=== PATIENT | male | born 1945 | race Caucasian/White ===

== ENCOUNTER 2017-03-10 13:45 | Inpatient (IN) | payer MEDICARE ==
[~2017-03-10] VITALS: Ht 170.2 cm; Wt 60.3 kg
--- NOTE | ~2017-03-10 | CR145 ---
[facility] Service of [facility] RADIOLOGY TEXT RESULTS PATIENT: BOUCHRA IVORY LOCATION: [place] [address] : [birth year] UNIT #: [id number] AGE: [address]: CHARLENE BRADY V SEX: M ORDER DR: [id number] [facility] [address] [facility]. [place], [place] [address] [id number] I MR#: [id number] Acc #: [id number] NAME: BOUCHRA IVORY : 1945 SEX: M STUDY DATE/TIME: 03/11/2017 20:48 UNIT: [facility] ROOM: [facility] STUDY DESCRIPTION: CR Hip 1 View Rt Attending Physician: Charlene Brady M.D. Ordering Physician: Jairo Ferro M.D. MEDICAL IMAGING REPORT This report is preliminary unless electronic signature is present EXAM Right hip one-view HISTORY Postop right hip surgery today. Hip fracture yesterday. FINDINGS Single view of the right hip demonstrates right hip arthroplasty in satisfactory position. No fracture. Small amount of postoperative soft tissue gas about the hip. IMPRESSION Satisfactory postoperative appearance of right hip arthroplasty. Dictated by... Thad Howe M.D. THIS IS AN ELECTRONICALLY VERIFIED REPORT Thad Howe M.D. at 03/12/2017 11:45 PM Nery TD: 03/12/2017 08:43 JOB #: [id number] MEDICAL IMAGING REPORT Page 1 of 1 COPY
--- NOTE | ~2017-03-10 | EKG ---
PATIENT: BOUCHRA IVORY UNIT #: [id number] Ventricular Rate: 82 BPM Atrial Rate: 82 BPM P-R Interval: 120 ms QRS Duration: 86 ms Q-T Interval: 374 ms QTC Calculation(Bezet): 436 ms P [place]: 72 degrees Calculated R [place]: 10 degrees Calculated T [place]: 25 degrees Diagnosis Line: Normal sinus rhythm Diagnosis Line: Cannot rule out Inferior infarct , age Diagnosis Line: undetermined Diagnosis Line: Borderline ECG Diagnosis Line: No previous ECGs available Diagnosis Line: Confirmed by IRENE WILKINSON MD ([id number]) on 03/11/2017 Diagnosis Line: 6:29:05 PM INTERPRETING MD: JAJA THORNE
--- NOTE | ~2017-03-10 | HP ---
Unit #: [id number] #: [id number] Patient: BOUCHRA IVORY [id number] [address] [address] [id number] E MR#: [id number] NAME: BOUCHRA IVORY. ROOM: Age: 71 Sex: M Admission Date: 03/10/2017 : 1945 Attending Physician: Gideon Cortes M.D. HISTORY AND PHYSICAL CHIEF COMPLAINT Right-sided pain from fall last night. HISTORY OF PRESENT ILLNESS The patient is a 71-year-old male with a history of hyperlipidemia and TIA brought to the emergency room status post fall. The patient was changing a bulb at the middle of the bed yesterday around 3 p.m. The patient fell backwards and hit the ground. The patient was complaining of pain on the right side of the body including the hip. The patient denies any loss of consciousness. The patient denies any nausea, vomiting, diaphoresis, chest pain, or headache. The patient refused to come to the hospital yesterday and presented today with worsening hip pain. The patient had a hip x-ray that showed a subcapital fracture of the femoral neck and is being admitted for the above reasons. He denies any fevers or chills. PAST MEDICAL HISTORY 1. Hyperlipidemia. 2. Transient ischemic attack. 3. Psychiatric history of unknown diagnosis. PAST SURGICAL HISTORY None. HOME MEDICATIONS 1. Donepezil. 2. Zoloft. 3. Lipitor. 4. Provera. 5. Flomax. 6. Low-dose aspirin. 7. Multivitamins. SOCIAL HISTORY Patient has smoked two packs per day in the past and stopped 16 years ago. No history of alcohol or any illicit drug abuse. FAMILY HISTORY Reviewed and none. REVIEW OF SYSTEMS Positive for fall, positive for hip pain. Denies any chest pain, denies any nausea or vomiting, and denies any shortness of breath. All other systems have been reviewed and are none except as mentioned above. Unit #: [id number] #: [id number] Patient: BOUCHRA IVORY PHYSICAL EXAMINATION GENERAL: Patient is lying in bed not in acute distress. VITAL SIGNS: Temperature 98, pulse 96, respiratory rate 18, blood pressure 135/84, and saturating 97% on room air. HEENT: Head atraumatic, normocephalic. Pupils equal, round, and reactive to light and accommodation. Extraocular movements are intact. NECK: Supple. LUNGS: Decreased air entry. HEART: Regular rate and rhythm. ABDOMEN: Soft. Positive bowel sounds. EXTREMITIES: Patient is having in the right hip status post subcapital femoral neck fracture. NEUROLOGIC: Alert, awake, and oriented. DIAGNOSTIC STUDIES LABORATORY: WBC 8, hemoglobin 12.9, hematocrit 38.2, and platelets 102,000. Sodium 141, potassium 4.2, chloride 107, bicarb 26, glucose 104, BUN 18, creatinine 0.8, calcium 8.8, AST 32, ALT 27, alkaline phosphatase 71, and albumin is 4. INR is 1.1. ASSESSMENT 1. Status post fall. 2. Right hip subcapital femoral neck fracture. PLAN Admit the patient to inpatient to a med/surg floor. Patient will have an Orthopedics evaluation for open reduction and internal fixation. Check urinalysis and EKG for preop clearance. Repeat the CBC and BMP in the morning, and further recommendations will follow as more lab results are available. Dictated by Elli Gardner TD: 03/10/2017 20:45 JOB #: [id number] HISTORY AND PHYSICAL Page 1 of 1 X CHARMAINE BARRERA MD X HISTORY AND PHYSICAL
--- NOTE | ~2017-03-10 | CR151 ---
[facility] A Service of [facility] & [facility] RADIOLOGY TEXT RESULTS PATIENT: BOUCHRA IVORY LOCATION: [facility] 469-01 : [birth year] UNIT #: [id number] AGE: [address]: RENZO BRADYJ V SEX: M ORDER DR: [id number] [facility] [address] [facility]. [place], [place] [address] [id number] I MR#: [id number] Acc #: [id number] NAME: BOUCHRA IVORY. : 1945 SEX: M STUDY DATE/TIME: 03/10/2017 14:44 UNIT: [facility] ROOM: Replaced by [facility] STUDY DESCRIPTION: CR Hip Min 2 Views Rt Attending Physician: Faraz Lyles M.D. Ordering Physician: Gideon Cortes M.D. MEDICAL IMAGING REPORT This report is preliminary unless electronic signature is present EXAM right hip 2 views HISTORY Right hip pain after fall yesterday. FINDINGS Two views of the right hip demonstrate transverse subcapital fracture right femoral neck with slight fracture impaction. Approximately 10 degrees anterior angulation of the fracture apex. No dislocation. No joint space narrowing. Dictated by... Thad Howe M.D. THIS IS AN ELECTRONICALLY VERIFIED REPORT Thad Howe M.D. at 03/11/2017 11:15 PM DFGala/naheed TD: 03/11/2017 07:04 JOB #: [id number] MEDICAL IMAGING REPORT Page 1 of 1 COPY
--- NOTE | ~2017-03-10 | OR ---
Unit #: [id number] #: [id number] Patient: BOUCHRA IVORY [id number] [address] [place], [place] [address] [id number] I MR#: [id number] NAME: BOUCHRA IVORY. ROOM: 456 Date of Procedure: 03/11/2017 Admission Date: 03/10/2017 Surgeon: Jairo Ferro M.D. : 1945 Attending Physician: [place] M.D. OPERATIVE REPORT PREOPERATIVE DIAGNOSIS Displaced left femoral neck fracture. POSTOPERATIVE DIAGNOSIS Displaced left femoral neck fracture. PROCEDURE PERFORMED Cemented bipolar prosthesis. ASSISTANTS Jackie Lucio and Lloyd Sanz. ANESTHESIA General. ESTIMATED BLOOD LOSS About 200 to 300 mL. INDICATIONS FOR PROCEDURE This is a 71-year-old gentleman with a left femoral neck fracture. He is brought to the operating room for surgical repair. DESCRIPTION OF PROCEDURE He was given appropriate IV antibiotics, brought back to the operating room, given a general anesthetic, placed in the decubitus position with the left side up. Left hip was prepped and draped in a sterile fashion. Modified Aufranc incision was mapped out and made. The subcutaneous dissected away and the fascia split longitudinally. Short external rotators were taken down. A posterior approach was carried out to the hip. The hip capsule was T'd open. The leg was internally rotated. The neck fracture came into view. The neck was cut at the appropriate level. The small neck fragment removed. We then removed the head from the acetabulum and measured this and it was found to be a 52 mm size, so a 52 mm trial bipolar was placed and the acetabulum fit appropriately. We then prepared the femur. Starter reamer passed down. Lateralizing reamer used and then the broaches used for the [place] cemented stem up to a size 5. Once this was in place and found to be the appropriate size, the canal was brushed, plugged, irrigated, and dried. Two packages of cement were mixed and the stem was cemented into 20 degrees of anteversion. When the cement was hardened, we checked leg length and found that the +5 head gave us the appropriate stability. So the +5, 28 head was opened and applied to the inside of the 52 mm bipolar. This construct was then applied to the Unit #: [id number] #: [id number] Patient: BOUCHRA IVORY trunnion bearing and impacted. The hip was reduced. It was stable in all directions. Leg lengths were appropriate. The wound was then had the ropivacaine mixture injected, was irrigated with Betadine and bacitracin and then closed. The capsule was repaired with 0 Vicryl, the fascia with a running #1 Stratafix suture. The subcutaneous was closed with 0 and 2-0 Vicryl and dianelys in the skin. behavioral assistant, Jackie Lucio, was present throughout the entire case. Dictated by... Elli Morales/jb TD: 03/14/2017 14:48 JOB #: [id number] OPERATIVE REPORT Page 1 of 1 X Jairo Ferro MD X PROCEDURE OPERATIVE NOTE
--- NOTE | ~2017-03-10 | CT71 ---
[facility] A Service [facility] RADIOLOGY TEXT RESULTS PATIENT: BOUCHRA IVORY LOCATION: [facility] 457 : [birth year] UNIT #: [id number] AGE: [address]: CHARLENE BRADY V SEX: M ORDER DR: [id number] [place] [address] [facility]. [place], [place] [address] [id number] I MR#: [id number] Acc #: [id number] NAME: BOUCHRA IVORY. : 1945 SEX: M STUDY DATE/TIME: 03/10/2017 16:01 UNIT: [facility] ROOM: [facility] STUDY DESCRIPTION: CT Head Wo Contrast Attending Physician: Faraz Lyles M.D. Ordering Physician: Gideon Cortes M.D. MEDICAL IMAGING REPORT This report is preliminary unless electronic signature is present EXAM CT head INDICATIONS Right-sided headache status post fall. Head hit a dresser. TECHNIQUE CT head without contrast. The CT exam was performed with one or more of the following radiation dose reduction techniques: automatic exposure control, adjustment of mA and/or kV according to patient size, and iterative reconstruction. COMPARISON CT head 12/25/2011. FINDINGS There is no acute intracranial hemorrhage, mass lesion, or acute infarct. There is an area of encephalomalacia in the left basal ganglia from a prior infarct. Ex vacuo dilation of the left lateral ventricle is unchanged. No extraaxial collections. No acute osseous abnormalities. IMPRESSION 1. No acute intracranial findings. 2. 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 Dictated by... Zaid Vickers M.D. THIS IS AN ELECTRONICALLY VERIFIED REPORT [facility] A Service [facility] RADIOLOGY TEXT RESULTS PATIENT: BOUCHRA IVORY LOCATION: [facility] [address] : [birth year] UNIT #: [id number] AGE: [address]: CHARLENE BRADY V SEX: M ORDER DR: Zaid Vickers M.D. at 03/12/2017 10:29 AM DAT/naheed TD: 03/11/2017 08:15 JOB #: [id number] MEDICAL IMAGING REPORT Page 1 of 1 COPY
--- NOTE | ~2017-03-10 | DS ---
Unit #: [id number] #: [id number] Patient: BOUCHRA IVORY [id number] [address] [address] [id number] I MR#: [id number] NAME: BOUCHRA IVORY. ROOM: 456 Age: 71 Sex: M Admission Date: 03/10/2017 : 1945 Discharge Date: 03/13/2017 Attending Physician: [place] M.D. DISCHARGE SUMMARY PERTINENT HISTORY AND HOSPITAL COURSE The patient is a 71-year-old man with a history of significant for hyperlipidemia and TIA, who was brought to the emergency room after he had a fall at home, following which he had pain over his right hip. X-rays demonstrated a right hip subcapital femoral neck fracture. Orthopedics consultation was obtained. The patient underwent a right hip arthroplasty. Postoperatively, the patient did well. The patient's vitals are stable. The patient will be discharged to rehabilitation center for physical therapy. DISCHARGE MEDICATIONS 1. Flomax 0.4 mg p.o. at bedtime. 2. Tylenol 325 mg p.o. q.4 p.r.n. for pain. 3. Lovenox 40 mg subcutaneous once daily for 14 days. 4. Zoloft 150 mg p.o. daily. 5. Benadryl 25 mg p.o. q.8 p.r.n. for itching. 6. Dulcolax 10 mg suppository p.r.n. for constipation. 7. Colace one tablet p.o. twice daily. 8. Aricept 10 mg p.o. once daily. 9. Lipitor 40 mg p.o. at bedtime. 10. Multivitamin tab one p.o. daily. 11. Aspirin 81 mg p.o. once daily. 12. Hydrocodone 10/325 mg one tablet p.o. q.4 p.r.n. for pain. 13. Provera 5 mg p.o. daily. DISCHARGE INSTRUCTIONS 1. Patient to be discharged to [facility] for rehabilitation. 2. Lovenox for DVT prophylaxis is to be continued for 14 days. 3. Skin dianelys can be removed after two weeks. 4. Dressing change daily. 5. Followup with orthopedist, Dr. Ferro, after four weeks. Dictated by... Elli Pozo TD: 03/13/2017 14:15 JOB #: [id number] Unit #: [id number] #: [id number] Patient: BOUCHRA IVORY DISCHARGE SUMMARY Page 1 of 1 X X DISCHARGE SUMMARY
--- NOTE | ~2017-03-10 | CT52 ---
[facility] A Service [facility] RADIOLOGY TEXT RESULTS PATIENT: BOUCHRA IVORY LOCATION: [place] [address] : [birth year] UNIT #: [id number] AGE: [address]: RENZO BRADYJ V SEX: M ORDER DR: [id number] [place] [address] [facility]. [place], [place] [address] [id number] I MR#: [id number] Acc #: [id number] NAME: BOUCHRA IVORY. : 1945 SEX: M STUDY DATE/TIME: 03/10/2017 16:04 UNIT: [facility] ROOM: 469 STUDY DESCRIPTION: CT Cervical Spine Wo Cont Attending Physician: Faraz Lyles M.D. Ordering Physician: Gideon Cortes M.D. MEDICAL IMAGING REPORT This report is preliminary unless electronic signature is present EXAM CT cervical spine INDICATION Right-sided neck pain status post fall. One day duration. Fall off the bed. TECHNIQUE CT cervical spine without contrast. Coronal and sagittal reconstructions were obtained. This CT exam was performed with one or more of the following radiation dose reduction techniques: automatic exposure control, adjustment of mA and/or kV according to patient size, and iterative reconstruction. COMPARISON None available. FINDINGS There is no acute fracture or subluxation of the cervical spine. Vertebral body height and alignment is within normal limits. The atlantoaxial articulations and craniocervical junction are within normal limits. Prevertebral soft tissues are normal. There is some mild degenerative narrowing of the C5-6 disc level. IMPRESSION No acute traumatic findings in the cervical spine. Dictated by... Zaid Vickers M.D. THIS IS AN ELECTRONICALLY VERIFIED REPORT Zaid Vickers M.D. at 03/12/2017 10:29 AM [facility] A Service [facility] RADIOLOGY TEXT RESULTS PATIENT: BOUCHRA IVORY LOCATION: [facility] 457 : 46 UNIT #: [id number] AGE: [address]: CHARLENE BRADY V SEX: M ORDER DR: Reginaldo TD: 03/11/2017 07:58 JOB #: [id number] MEDICAL IMAGING REPORT Page 1 of 1 COPY
--- NOTE | ~2017-03-10 | CR107 ---
[facility] A Service of [facility] RADIOLOGY TEXT RESULTS PATIENT: BOUCHRA IVORY LOCATION: [facility] 469-01 : [birth year] UNIT #: [id number] AGE: [address]: JOSEPH BRADYUJ V SEX: M ORDER DR: [id number] [facility] [address] [facility]. [place], [place] [address] [id number] I MR#: [id number] Acc #: [id number] NAME: BOUCHRA IVORY. : 1945 SEX: M STUDY DATE/TIME: 03/10/2017 14:48 UNIT: [facility] ROOM: [facility] STUDY DESCRIPTION: CR Femur 2 Views Rt Attending Physician: Faraz Lyles M.D. Ordering Physician: Gideon Cortes M.D. MEDICAL IMAGING REPORT This report is preliminary unless electronic signature is present EXAM Right femur AP and lateral HISTORY Pain after fall yesterday. FINDINGS AP and lateral views of the right femur demonstrate transverse subcapital fracture of the right femoral neck with slight fracture impaction and mild anterior angulation of the fracture apex. No dislocation. No joint space narrowing. Mild generalized demineralization. No additional fracture. Dictated by... Thad Howe M.D. THIS IS AN ELECTRONICALLY VERIFIED REPORT Thad Howe M.D. at 03/11/2017 11:15 PM EDA/gracy TD: 03/11/2017 07:08 JOB #: [id number] MEDICAL IMAGING REPORT Page 1 of 1 COPY
--- NOTE | ~2017-03-10 | CO ---
Unit #: [id number] #: [id number] Patient: BOUCHRA IVORY [id number] [address] [address] [id number] I MR#: [id number] NAME: BOUCHRA IVORY. ROOM: 469 Age: 71 Sex: M Admission Date: 03/10/2017 : 1945 Attending Physician: Faraz Lyles M.D. CONSULTATION REPORT REASON FOR CONSULTATION Right femoral neck subcapital fracture. HISTORY OF PRESENT ILLNESS The patient is a very pleasant 71 year old who came to the emergency department after suffering a fall. We were consulted by Dr. Lyles for a right impacted femoral neck fracture. The patient was changing a light bulb over the bed around 3 o'clock on 03/09/2017. The patient reports he fell backward. The patient has been complaining of right hip pain. The patient reports most of his pain in his right groin area. The patient was unable to ambulate very well without severe pain. The patient denied any numbness, tingling, fever or chills. The patient, on admission, did have x-rays, which showed a subcapital fracture of the femoral neck. PAST MEDICAL HISTORY 1. Hyperlipidemia. 2. History of TIA. 3. Psychiatric history of unknown diagnosis. PAST SURGICAL HISTORY None. HOME MEDICATIONS Donepezil, Zoloft, Lipitor, Provera, Flomax, low-dose aspirin, multivitamin. SOCIAL HISTORY The patient smoked 2 packs of cigarettes a day in the past. He stopped 16 years ago. He denies any history of alcohol or any illicit drugs. FAMILY HISTORY Reviewed. No family history of cardiac disease or cancers. REVIEW OF SYSTEMS CONSTITUTIONAL: The patient denies any weight gain or weight loss. EYES: Denies any double vision or blurred vision. LUNGS: Denies any shortness of air or chronic cough. CARDIOVASCULAR: Denies any chest pain or irregular heartbeats. ABDOMEN: Denies any nausea or vomiting. MUSCULOSKELETAL: Admits to severe pain in his right hip with ambulation, weightbearing activities. EXTREMITIES: Denies any clubbing or edema. NEUROLOGIC: Denies headaches, numbness or tingling. Twelve complete systems in total were reviewed and negative other than Unit #: [id number] #: [id number] Patient: BOUCHRA IVORY. PHYSICAL EXAMINATION GENERAL: He is well developed, well nourished, in no acute distress. Alert and oriented x3. VITAL SIGNS: Temperature is 97.7, blood pressure 113/63, heart rate 73 and regular, and respirations 18. HEENT: Normocephalic, atraumatic. PERRLA. Extraocular movements were intact. Conjunctivae are clear. NECK: His neck was supple. No thyromegaly. CARDIOVASCULAR: S1, S2. No gallops or rubs. LUNGS: Clear to auscultation. No accessory muscle use. Equal expansion bilaterally. ABDOMEN: Soft, nontender, nondistended. Positive bowel sounds. MUSCULOSKELETAL: Gait not appreciated. Examination of the patient's right hip - Range of motion was deferred because of known hip fracture. There was a small bruise consistent with point of impact. There were no other masses or effusions noted. The patient did have 4/5 quad and hamstring strength. He was able to move his ankle without problems or complications. His neurovascular exam was intact. EXTREMITIES: He had 2+ pulses bilaterally. No clubbing, cyanosis or edema. SKIN: No rashes, lesions or ulcers. NEUROLOGIC: Limited orthopedic exam. Was able to move all 4 extremities. Admittedly he had a lot of pain in hip. DIAGNOSTIC STUDIES IMAGING: X-rays demonstrated a right subcapital hip fracture. LABORATORY: His sodium is 141, potassium 3.7, chloride 107, CO2 23, BUN 16, creatinine 0.8, glucose 97. His PT is 11.8, INR 1.1. WBC 7.6, hemoglobin 13.6. ASSESSMENT Right subcapital hip fracture. PLAN We will plan for percutaneous pinning versus endoprosthesis. We will have Dr. Ferro review x-rays and decide what he thinks is best the treatment. I explained this to the patient. I explained the risks and expected outcomes. The risks do include blood clot, infection, neurovascular deficit, leg discrepancy, infection and even . The patient completely understands and wishes to proceed. We will give the patient a clear liquid breakfast and then NPO. We will get a consent for right hip percutaneous pinning versus endoprosthesis by Dr. Ferro. Dictated by... Dileep Caraballo P.A.-C- lila Ferro M.D. KF/db TD: 03/11/2017 08:47 JOB #: [id number] Unit #: [id number] #: [id number] Patient: BOUCHRA IVORY CONSULTATION REPORT Page 1 of 1 X X CONSULTATION REPORT
[~2017-03-10 13:45] MED LIST: FLEXERIL10 MG PO; IBUPROFEN800 MG PO
[2017-03-10] MEDS ORDERED: DONEPEZIL HCL10 MG PO (17:32)
[2017-03-10] MEDS ORDERED: LIPITOR40 MG PO (17:33)
[2017-03-10] MEDS ORDERED: ZOLOFT PO (17:33)
[2017-03-10] MEDS ORDERED: PROVERA5 MG PO (17:33)
[2017-03-10] MEDS ORDERED: FLOMAX0.4 M1 PO (17:34)
[2017-03-10] MEDS ORDERED: LOW DOSE ASPIRI81 M1 PO (17:34)
[2017-03-10] MEDS ORDERED: MULTI-VITAMIN1 EAC1 PO (17:34)
[2017-03-10 17:35] LABS: BASOPHIL# 0.1 X10e3 (0-0.3); BASOPHIL% 1.3 % (0-2.5); EOSINOPHIL% 0.2 % (0.0-7.0); HEMATOCRIT 38.2 % (38.0-50.0); HEMOGLOBIN 12.9 gm/dL (13.0-16.0); LYMPHOCYTE# 0.8 X10e3 (1.0-3.5); LYMPHOCYTE% 9.8 % (17.0-45.0); MEAN CELL VOLUME 88.5 FL (83-96); MEAN CORPUSCULAR HEMOGLOBIN 29.9 PG (28-34); MEAN CORPUSCULAR HGB CONC 33.8 g/dL (30-36); MEAN PLATELET VOLUME 6.6 FL (6.5-11.5); MONOCYTE# 0.5 X10e3 (0-1.0); MONOCYTE% 5.9 % (3.0-12.0); NEUTROPHIL# 6.7 X10e3 (1.5-7.1); NEUTROPHIL% 82.8 % (40-75); PLATELET COUNT 102 X10e3 (140-420); RED BLOOD COUNT 4.31 X10e (3.90-5.60); RED CELL DISTRIBUTION WIDTH 13.3 % (11.0-15.5)
[2017-03-10 17:36] LABS: DIFF IND NO
[2017-03-10 17:52] LABS: INR 1.1; PARTIAL THROMBOPLASTIN TIME 26.4 SECONDS (23.5-31.3); PROTHROMBIN TIME (PATIENT) 11.8 SECONDS (10.0-11.7)
[2017-03-10 17:59] LABS: BILIRUBIN,TOTAL 1.1 mg/dL (0.2-2.0); BUN/CREATININE RATIO 22.5; CALCIUM SERUM 8.8 mg/dL (8.4-10.2); CREATININE SERUM 0.8 mg/dL (0.6-1.4); GLOM FILT RATE Estimated 90.5 mL/min (>60); POTASSIUM 4.2 mmol/L (3.5-5.1); PROTEIN TOTAL SERUM 6.6 g/dL (6.0-8.3)
[2017-03-10 21:29] LABS: URINE APPEARANCE TURBID; URINE BILIRUBIN NEG (NEG); URINE BLOOD TRACE (NEG); URINE COLOR YELLOW; URINE GLUCOSE NEG (NEG); URINE KETONE TRACE (NEG); URINE LEUKOCYTE ESTERASE TRACE (NEG); URINE NITRATE NEG (NEG); URINE PH 7.5 (5-8); URINE PROTEIN NEG (NEG); URINE SPECIFIC GRAVITY 1.018 (1.003-1.035)
[2017-03-10 21:31] LABS: URINE BACTERIA AUWI NEG (NEGATIVE); URINE SQUAMOUS EPITHELIAL CELL NONE SEEN /[HPF]; UWBCS1 AUWI 0-2 (0-5)
[2017-03-10 21:35] LABS: CULTURE INDICATED? NO
[2017-03-11 02:49] LABS: BASOPHIL% 0.5 % (0-2.5); EOSINOPHIL# 0.1 X10e3 (0-0.7); EOSINOPHIL% 1.1 % (0.0-7.0); HEMATOCRIT 41.2 % (38.0-50.0); HEMOGLOBIN 13.6 gm/dL (13.0-16.0); LYMPHOCYTE# 0.7 X10e3 (1.0-3.5); LYMPHOCYTE% 9.1 % (17.0-45.0); MEAN CELL VOLUME 89.3 FL (83-96); MEAN CORPUSCULAR HEMOGLOBIN 29.6 PG (28-34); MEAN CORPUSCULAR HGB CONC 33.1 g/dL (30-36); MONOCYTE# 0.6 X10e3 (0-1.0); MONOCYTE% 7.5 % (3.0-12.0); NEUTROPHIL# 6.2 X10e3 (1.5-7.1); NEUTROPHIL% 81.8 % (40-75); PLATELET COUNT 101 X10e3 (140-420); RED BLOOD COUNT 4.62 X10e (3.90-5.60); RED CELL DISTRIBUTION WIDTH 13.2 % (11.0-15.5); WHITE BLOOD COUNT 7.6 X10e3 (4.0-10.5)
[2017-03-11 02:50] LABS: DIFF IND NO
[2017-03-11 03:08] LABS: CREATININE SERUM 0.8 mg/dL (0.6-1.4); GLOM FILT RATE Estimated 90.5 mL/min (>60); POTASSIUM 3.7 mmol/L (3.5-5.1)
[2017-03-12 03:14] LABS: HEMATOCRIT 37.4 % (38.0-50.0); HEMOGLOBIN 12.6 gm/dL (13.0-16.0); MEAN CELL VOLUME 88.9 FL (83-96); MEAN CORPUSCULAR HEMOGLOBIN 29.9 PG (28-34); MEAN CORPUSCULAR HGB CONC 33.6 g/dL (30-36); RED BLOOD COUNT 4.21 X10e (3.90-5.60); RED CELL DISTRIBUTION WIDTH 13.2 % (11.0-15.5); WHITE BLOOD COUNT 7.6 X10e3 (4.0-10.5)
[2017-03-13 02:36] LABS: HEMATOCRIT 32.5 % (38.0-50.0); HEMOGLOBIN 11.1 gm/dL (13.0-16.0); MEAN CELL VOLUME 87.7 FL (83-96); MEAN CORPUSCULAR HEMOGLOBIN 30.1 PG (28-34); MEAN CORPUSCULAR HGB CONC 34.3 g/dL (30-36); RED BLOOD COUNT 3.7 X10e (3.90-5.60); RED CELL DISTRIBUTION WIDTH 13.2 % (11.0-15.5); WHITE BLOOD COUNT 7.6 X10e3 (4.0-10.5)
== END 2017-03-13 19:27 | DRG 470 ==
LOC: CED 13:45 → CEDOF 18:15 → CED 19:24 → CEDOF 19:24 → C4C 20:18 → CEDOF 20:45 → C4C 20:45 → C4B 03-12 10:20
PROVIDERS: Emergency Medicine; Internal Medicine; Orthopaedic Surgery
PROC: 0SRR0J9 Replacement of Right Hip Joint, Femoral Surface with Synthetic Substitute, Cemented, Open Approach (ICD-10-PCS; principal; 2017-03-11 15:30)
DX: S72.011A Unspecified intracapsular fracture of right femur, initial encounter for closed fracture (principal); E78.5 Hyperlipidemia, unspecified; W06.XXXA Fall from bed, initial encounter; Y93.E9 Activity, other interior property and clothing maintenance; Y92.092 Bedroom in other non-institutional residence as the place of occurrence of the external cause; Y99.9 Unspecified external cause status; Z86.73 Personal history of transient ischemic attack (TIA), and cerebral infarction without residual deficits
CPT/HCPCS: 70450; 72125; 73501; 73502; 73552; 80048; 80053; 81003; 85025; 85027; 85610; 85730; 88305; 88311; 93005; 94760; 97116; 97162; 97166; 97530; 97535; 99285; C1713; C1776; G8978-GP; G8979-GP; G8987-GO; G8988-GO; J0690; J1650; J2405; J3010